=== PATIENT | female | born 1940 | race Caucasian/White ===

== ENCOUNTER → 2016-05-22 | Outpatient (CLI) | payer MEDICARE, BC ==
[~2016-05-22] MED LIST: ASPIRIN EC81 MG PO; CARTIA XT300 MG PO; FLEET133 ML R; HYZAAR 100-251 EACH PO; LEVOTHROID (SY50 MCG PO; LOPRESSOR12.5 MG/0. PO; NUCYNTA50 MG PO; OSCAL + D500 MG PO; PRILOSEC20 MG PO; SYMBICORT 16010.2 GM INH; TYLENOL325 MG PO; ULTRAM50 MG PO; VALIUM5 MG PO; XARELTO10 MG PO
== END | disposition disaster alternative care site (69) ==
LOC: GCAR 11:12
DX: R42 Dizziness and giddiness (principal); I65.23 Occlusion and stenosis of bilateral carotid arteries